=== PATIENT | female | born 2000 | race Hispanic/Latino ===

== ENCOUNTER 2023-12-21 07:29 | Emergency (ER) | payer SELFPAY ==
[2023-12-21] MEDS ORDERED: Dexamethasone 10 MG/ML VIAL ONE (07:48)
[2023-12-21 08:08] LABS: MONO NEGATIVE CONTROL ZONE White (Negative) (White); MONO POSITIVE CONTROL Pink Line (Positive) (PINK/RED); Mononucleosis NEGATIVE (NEGATIVE)
[2023-12-21] MEDS ORDERED: Ketorolac Tromethamine 30 MG (1 mL) VIAL ONE (08:30)
[2023-12-21] MEDS ORDERED: Acetaminophen 500 MG TAB ONE (08:30)
[2023-12-21 09:50] LABS: Pregnancy Test - Urine (BHCG) Negative (Negative); Pregu Control Background? CLEAR/WHITE (CLR/WHITE); Pregu Control Bar Appear? YES (CONTROL BAR); Specific Gravity 1.023 (1.002-1.036)
== END 2023-12-21 10:07 | disposition home or self-care (01) ==
LOC: ERS 07:29
DX: J02.9 Acute pharyngitis, unspecified (principal)
CPT/HCPCS: 36415; 81025; 86308; 87081; 87400; 87430; 96372; 96374; J1100; J1885